=== PATIENT | female | born 1950 | race African-American/Black ===

== ENCOUNTER 2024-11-06 21:56 | Emergency (ER) | payer OTHER, MEDICAID ==
[~2024-11-06] VITALS: Ht 162.6 cm; Wt 110.0 kg
[2024-11-06 21:58] VITALS: BP 168/74; PULSE 60; RESP 22; TEMP 36.9; O2SAT 100
== END 2024-11-06 22:54 | disposition left against medical advice (07) ==
LOC: ER 21:56 → CANBEDREQ 11-07 00:23
DX: R06.02 Shortness of breath (principal); Z53.21 Procedure and treatment not carried out due to patient leaving prior to being seen by health care provider
CPT/HCPCS: 93005